=== PATIENT | male | born 1990 | race Caucasian/White ===

== ENCOUNTER 2017-06-12 16:58 | Emergency (ER) | payer OTHER, SELFPAY ==
--- NOTE | 2017-06-12 17:40 | RAD ---
TWO VIEWS OF THE LEFT RING FINGER: 06/12/17 INDICATION: Injury to left ring finger one hour ago. COMPARISON: None. FINDINGS: There is dorsal subluxation of the left ring finger middle phalanx of one half shaft width. There is a mildly displaced volar avulsion fracture involving the left ring finger middle phalangeal base. N o additional fracture is evident. There is healed deformity involving the left small finger metacarp al neck consistent with a prior boxer's fracture. IMPRESSION: Dorsal fracture subluxation of the left ring finger DIP joint. POS: ALESSANDRA
== END 2017-06-12 17:40 | disposition home or self-care (01) ==
LOC: NAV ERS 16:58
DX: S62.625A Displaced fracture of middle phalanx of left ring finger, initial encounter for closed fracture (principal); Y04.0XXA Assault by unarmed brawl or fight, initial encounter; Y99.0 Civilian activity done for income or pay
CPT/HCPCS: 26725

== ENCOUNTER 2021-09-10 00:06 | Emergency (ER) | payer BC | END 2021-09-10 01:08 | disposition home or self-care (01) | LOC: NAV ERS 00:06 | DX: S43.005A Unspecified dislocation of left shoulder joint, initial encounter (principal); X50.9XXA Other and unspecified overexertion or strenuous movements or postures, initial encounter | CPT/HCPCS: 23650 ==